=== PATIENT | female | born 1975 | race Caucasian/White ===

== ENCOUNTER 2022-05-19 09:00 | Emergency (ER) | payer SELFPAY ==
[2022-05-19] MEDS ORDERED: Acetaminophen 500 MG TAB ONE (09:49)
[2022-05-19] MEDS ORDERED: Lidocaine 1% PF 5 ML VIAL ONE (09:49)
[2022-05-19] MEDS ORDERED: Ibuprofen 800 MG TAB ONE (09:49)
== END 2022-05-19 12:20 | disposition home or self-care (01) ==
LOC: ERS 09:00
DX: N76.4 Abscess of vulva (principal); E11.9 Type 2 diabetes mellitus without complications; I10 Essential (primary) hypertension; Z87.891 Personal history of nicotine dependence; Z79.84 Long term (current) use of oral hypoglycemic drugs; Z79.899 Other long term (current) drug therapy
CPT/HCPCS: 56405

== ENCOUNTER 2022-05-26 19:57 | Emergency (ER) | payer SELFPAY | END 2022-05-26 21:43 | disposition home or self-care (01) | LOC: ERS 19:57 | DX: Z48.817 Encounter for surgical aftercare following surgery on the skin and subcutaneous tissue (principal); B37.31 Acute candidiasis of vulva and vagina; I10 Essential (primary) hypertension; E11.9 Type 2 diabetes mellitus without complications; Z87.891 Personal history of nicotine dependence | CPT/HCPCS: 93005 ==